=== PATIENT | female | born 1940 | race Caucasian/White ===

== ENCOUNTER 2022-02-15 06:09 | Inpatient (IN) | payer MEDICARE ==
[~2022-02-15] VITALS: Ht 175.3 cm; Wt 510.3 kg
[2022-02-15 06:59] LABS: BASOPHILS # (AUTO) 0.1 (0.0-0.1); BASOPHILS % 0.4 % (0.0-1.0); EOSINOPHILS # (AUTO) 0.3 (0.0-0.4); EOSINOPHILS % 1.9 % (0.0-6.0); HEMATOCRIT 45.7 % (34.2-44.1); HEMOGLOBIN 14.2 g/dL (12.0-16.0); LYMPHOCYTES # (AUTO) 1.5 (1.0-3.2); LYMPHOCYTES % 10.9 % (18.0-39.1); MEAN CORPUSCULAR HGB CONC 31.1 g/dL (31-35); MONOCYTES # (AUTO) 1.1 (0.2-0.8); MONOCYTES % 7.9 % (4.4-11.3); NEUTROPHILS # (AUTO) 10.5 (2.1-6.9); NEUTROPHILS % 78.6 % (38.7-80.0); PLATELET COUNT 309 x10e3/uL (140-360); RED BLOOD COUNT 5.08 x10e6/uL (3.6-5.1); RED CELL DISTRIBUTION WIDTH 13.3 % (11.7-14.4)
[2022-02-15 07:41] LABS: ALANINE AMINOTRANSFERASE 24 IU/L (0-55); ALBUMIN 3.3 g/dL (3.5-5.0); ALBUMIN/GLOBULIN RATIO 0.7 (0.8-2.0); ALKALINE PHOSPHATASE 143 IU/L (40-150); ANION GAP 14.7 mmol/L (8-16); BLOOD UREA NITROGEN 16 mg/dL (7-26); BUN/CREATININE RATIO 23 (6-25); CALCIUM 9.6 mg/dL (8.4-10.2); CARBON DIOXIDE 28 mmol/L (22-29); CHLORIDE 100 mmol/L (98-107); CREATINE KINASE 43 IU/L (29-168); CREATININE, SERUM 0.71 mg/dL (0.57-1.11); GLUCOSE 118 mg/dL (74-118); POTASSIUM 4.7 mmol/L (3.5-5.1); SODIUM 138 mmol/L (136-145)
[2022-02-15] MEDS: ASPIRIN 325 MG TAB PO ONE ×2 (08:02→08:25)
[2022-02-15] MEDS ORDERED: ATORVASTATIN CA20 MG PO (08:16)
[2022-02-15] MEDS ORDERED: ELIQUIS2.5 MG PO (08:17)
[2022-02-15] MEDS ORDERED: SOTALOL80 MG PO (08:17)
[2022-02-15] MEDS ORDERED: IOPAMIDOL 370 MG/ML 100 ML INFUS..BTL INJ ONE ×2 (08:24→22:15)
[2022-02-15] MEDS ORDERED: DIPHENHYDRAMINE HCL INJ 50 MG/ML VIAL IV ONE (08:30)
[2022-02-15 09:19] LABS: BACTERIA,URINE FEW /HPF; CLARITY,URINE CLEAR (CLEAR); COLOR,URINE YELLOW (YELLOW); EPITHELIAL CELLS,URINE FEW /LPF; KETONES,URINE NEGATIVE (NEGATIVE); LEUKOCYTE ESTERASE ,URINE NEGATIVE (NEGATIVE); NITRITE,URINE NEGATIVE (NEGATIVE); PROTEIN,URINE DIPSTICK NEGATIVE (NEGATIVE); RBC,URINE 0-5 /HPF (0-5); URINE UROBILINOGEN 0.2 mg/dL (0.2 - 1); WBC,URINE (MAN) 0-5 /HPF (0-5)
[2022-02-15] MEDS ORDERED: ONDANSETRON HCL INJ 2MG/ML 2ML 2 MG/ML VIAL IV PRN (10:45)
[2022-02-15 16:22] VITALS: BP 130/67
[2022-02-15] MEDS ORDERED: ENOXAPARIN 30 MG/0.3 ML SYR SC SCH (17:00)
[2022-02-15] MEDS ORDERED: ATORVASTATIN 20 MG TAB PO SCH ×2 (17:00→21:30)
[2022-02-15] MEDS: SOTALOL HCL 80 MG TAB PO SCH ×2 (19:16)
[2022-02-15] MEDS: APIXAB 2.5 MG TABLET PO SCH (19:16)
[2022-02-15 19:46] LABS: CREATINE KINASE 35 IU/L (29-168)
[2022-02-15 20:00] VITALS: BP 142/78
[2022-02-15 21:00] VITALS: BP 142/78
[2022-02-16] VITALS: BP 135/69
[2022-02-16 04:00] VITALS: BP 125/76
[2022-02-16 07:08] LABS: BASOPHILS # (AUTO) 0.1 (0.0-0.1); BASOPHILS % 0.5 % (0.0-1.0); EOSINOPHILS # (AUTO) 0.3 (0.0-0.4); EOSINOPHILS % 2.5 % (0.0-6.0); HEMATOCRIT 38.4 % (34.2-44.1); HEMOGLOBIN 12.1 g/dL (12.0-16.0); LYMPHOCYTES # (AUTO) 1.5 (1.0-3.2); MEAN CORPUSCULAR HEMOGLOBIN 28.1 pg (28-32); MEAN CORPUSCULAR HGB CONC 31.5 g/dL (31-35); MEAN CORPUSCULAR VOLUME 89.3 fL (81-99); MONOCYTES # (AUTO) 0.9 (0.2-0.8); MONOCYTES % 8.6 % (4.4-11.3); NEUTROPHILS # (AUTO) 7.9 (2.1-6.9); NEUTROPHILS % 73.9 % (38.7-80.0); PLATELET COUNT 235 x10e3/uL (140-360); RED CELL DISTRIBUTION WIDTH 13.3 % (11.7-14.4)
[2022-02-16 07:29] LABS: CREATINE KINASE 27 IU/L (29-168)
[2022-02-16 07:30] VITALS: BP 151/84
[2022-02-16] MEDS: FAMOTIDINE 20 MG TAB PO SCH ×2 (07:30→08:26)
[2022-02-16 07:39] LABS: ANION GAP 14.5 mmol/L (8-16); CALCIUM 8.6 mg/dL (8.4-10.2); CREATININE, SERUM 0.65 mg/dL (0.57-1.11); POTASSIUM 4.5 mmol/L (3.5-5.1)
[2022-02-16] MEDS: APIXAB 2.5 MG TABLET PO SCH (08:26)
[2022-02-16] MEDS: SOTALOL HCL 80 MG TAB PO SCH ×2 (08:28→09:00)
[2022-02-16] MEDS ORDERED: AUGMENTIN 500-1 EACH PO (10:23)
[2022-02-16 11:12] VITALS: BP 145/83
[2022-02-16 11:42] VITALS: BP 145/83
== END 2022-02-16 12:51 | disposition home or self-care (01) | DRG 179 ==
LOC: ER 06:13 → ERHOLD 10:45 → MED/SURG2 12:50
PROVIDERS: ADMIT Internal Medicine; ATTEND Internal Medicine
DX: A31.0 Pulmonary mycobacterial infection (principal); R09.1 Pleurisy; I10 Essential (primary) hypertension; E78.5 Hyperlipidemia, unspecified; I48.0 Paroxysmal atrial fibrillation; R91.8 Other nonspecific abnormal finding of lung field; E78.00 Pure hypercholesterolemia, unspecified; Z96.0 Presence of urogenital implants; Z79.01 Long term (current) use of anticoagulants; Z82.49 Family history of ischemic heart disease and other diseases of the circulatory system; Z86.16 Personal history of COVID-19
CPT/HCPCS: 36415; 71046; 71260; 80048; 80053; 81001; 82550; 82553; 83605; 84484; 85025; 87040; 93005; 94799; 99284; J0456; J0696; J1200; J1650; J7050; Q9967

== ENCOUNTER → 2022-04-01 | Outpatient (CLI) | payer MEDICARE ==
[~2022-04-01] MED LIST: ATORVASTATIN CA20 MG PO; AUGMENTIN 500-1 EACH PO; ELIQUIS2.5 MG PO; SOTALOL80 MG PO
== END ==
LOC: CT 14:09
PROVIDERS: ATTEND Internal Medicine Critical Care Medicine
DX: A31.9 Mycobacterial infection, unspecified (principal)
CPT/HCPCS: 71250

== ENCOUNTER 2023-01-22 08:36 | Inpatient (IN) | payer MEDICARE ==
[~2023-01-22] VITALS: Ht 175.3 cm; Wt 56.7 kg
[2023-01-22] MEDS ORDERED: SOTALOL HCL 80 MG TAB PO STA (09:16)
[2023-01-22 09:55] LABS: BASOPHILS % 0.2 % (0.0-1.0); EOSINOPHILS # (AUTO) 0.2 (0.0-0.4); HEMATOCRIT 49.6 % (34.2-44.1); HEMOGLOBIN 16.1 g/dL (12.0-16.0); LYMPHOCYTES # (AUTO) 1.9 (1.0-3.2); LYMPHOCYTES % 10.2 % (18.0-39.1); MEAN CORPUSCULAR HGB CONC 32.5 g/dL (31-35); MEAN CORPUSCULAR VOLUME 89.2 fL (81-99); MONOCYTES # (AUTO) 1.5 (0.2-0.8); MONOCYTES % 7.6 % (4.4-11.3); NEUTROPHILS # (AUTO) 15.4 (2.1-6.9); NEUTROPHILS % 80.5 % (38.7-80.0); PLATELET COUNT 229 x10e3/uL (140-360); RED BLOOD COUNT 5.56 x10e6/uL (3.6-5.1); RED CELL DISTRIBUTION WIDTH 13.3 % (11.7-14.4)
[2023-01-22 10:08] LABS: ALBUMIN 3.9 g/dL (3.5-5.0); ANION GAP 16.7 mmol/L (8-16); CALCIUM 9.7 mg/dL (8.4-10.2); CREATININE, SERUM 0.74 mg/dL (0.57-1.11); POTASSIUM 4.7 mmol/L (3.5-5.1)
[2023-01-22] MEDS ORDERED: DILTIAZEM HCL 5 MG/ML 5 ML VIAL IV STA (11:38)
[2023-01-22] MEDS ORDERED: LACTATED RINGER'S 1,000 ML INJ ONE (11:45)
[2023-01-22 12:28] LABS: CLARITY,URINE CLEAR (CLEAR); COLOR,URINE YELLOW (YELLOW); KETONES,URINE TRACE (NEGATIVE); LEUKOCYTE ESTERASE ,URINE NEGATIVE (NEGATIVE); NITRITE,URINE NEGATIVE (NEGATIVE); PROTEIN,URINE DIPSTICK 2+ (NEGATIVE); URINE UROBILINOGEN 0.2 mg/dL (0.2 - 1)
[2023-01-22 12:32] LABS: WBC,URINE (MAN) 21-50 /HPF (0-5)
[2023-01-22 12:33] LABS: BACTERIA,URINE FEW /HPF; EPITHELIAL CELLS,URINE FEW /LPF; RBC,URINE 0-5 /HPF (0-5); TRANSITIONAL EPI CELLS,URINE RARE
[2023-01-22 14:13] VITALS: PULSE 90; RESP 22; O2SAT 94
[2023-01-22] MEDS ORDERED: ONDANSETRON HCL INJ 2MG/ML 2ML 2 MG/ML VIAL IV PRN (16:30)
[2023-01-22] MEDS ORDERED: ACETAMINOPHEN 325 MG TAB PO PRN (16:30)
[2023-01-22] MEDS ORDERED: IOPAMIDOL 370 MG/ML 100 ML INFUS..BTL INJ ONE (16:43)
[2023-01-22] MEDS ORDERED: ZOLPIDEM TARTRATE 5 MG TAB PO PRN (16:45)
[2023-01-22 17:15] VITALS: BP 137/97; PULSE 90; RESP 22; TEMP 97.7; O2SAT 99
[2023-01-22 17:42] VITALS: BP 146/97; PULSE 75; RESP 21; TEMP 97.7; O2SAT 96
[2023-01-22] MEDS ORDERED: DILTIAZEM HCL 30 MG TAB PO PRN (18:00)
[2023-01-22] MEDS: SOTALOL HCL 80 MG TAB PO SCH (19:21)
[2023-01-22] MEDS: APIXAB 2.5 MG TABLET PO SCH (19:22)
[2023-01-22 19:26] VITALS: BP 146/97; PULSE 75; RESP 21; TEMP 97.7; O2SAT 96
[2023-01-22 19:49] VITALS: PULSE 92; RESP 18; O2SAT 95
[2023-01-22 21:29] VITALS: BP 162/95; PULSE 122; RESP 20; TEMP 98.4; O2SAT 96
[2023-01-22] MEDS: ATORVASTATIN 40 MG TAB PO SCH (21:42)
[2023-01-23] VITALS (10 sets, daily range): BP systolic 102–132; BP diastolic 60–95; PULSE 91–115; RESP 18–20; TEMP 98.3–98.7; O2SAT 89–97
[2023-01-23 05:43] LABS: HEMATOCRIT 42.7 % (34.2-44.1); HEMOGLOBIN 13.8 g/dL (12.0-16.0); MEAN CORPUSCULAR HGB CONC 32.3 g/dL (31-35); MEAN CORPUSCULAR VOLUME 89.7 fL (81-99); NEUTROPHILS % 76.1 % (38.7-80.0); PLATELET COUNT 195 x10e3/uL (140-360); RED BLOOD COUNT 4.76 x10e6/uL (3.6-5.1); RED CELL DISTRIBUTION WIDTH 13.2 % (11.7-14.4)
[2023-01-23 05:44] LABS: BASOPHILS % 0.3 % (0.0-1.0); EOSINOPHILS # (AUTO) 0.1 (0.0-0.4); EOSINOPHILS % 0.8 % (0.0-6.0); LYMPHOCYTES % 12.4 % (18.0-39.1); MONOCYTES # (AUTO) 1.6 (0.2-0.8)
[2023-01-23 06:11] LABS: ANION GAP 14.4 mmol/L (8-16); CALCIUM 8.9 mg/dL (8.4-10.2); CREATININE, SERUM 0.63 mg/dL (0.57-1.11); POTASSIUM 4.4 mmol/L (3.5-5.1)
[2023-01-23 07:18] LABS: FREE T4 (FREE THYROXINE) 1.17 ng/dL (0.8-1.8); THYROID STIMULATING HORMONE 1.372 uIU/mL (0.350-4.940)
[2023-01-23] MEDS: SENNOSIDES 8.6 MG TAB PO SCH (08:44)
[2023-01-23] MEDS: SOTALOL HCL 80 MG TAB PO SCH (08:44)
[2023-01-23] MEDS: APIXAB 2.5 MG TABLET PO SCH ×2 (08:44→17:04)
[2023-01-23] MEDS: DOCUSATE SODIUM 100 MG CAP PO SCH (08:45)
[2023-01-23] MEDS: ATORVASTATIN 40 MG TAB PO SCH (20:54)
[2023-01-24] VITALS (10 sets, daily range): BP systolic 103–135; BP diastolic 56–90; PULSE 51–112; RESP 16–21; TEMP 97.7–99; O2SAT 94–97
[2023-01-24 06:09] LABS: BASOPHILS # (AUTO) 0.1 (0.0-0.1); BASOPHILS % 0.3 % (0.0-1.0); EOSINOPHILS # (AUTO) 0.2 (0.0-0.4); EOSINOPHILS % 1.3 % (0.0-6.0); HEMATOCRIT 45.8 % (34.2-44.1); HEMOGLOBIN 14.8 g/dL (12.0-16.0); LYMPHOCYTES # (AUTO) 1.9 (1.0-3.2); LYMPHOCYTES % 10.5 % (18.0-39.1); MEAN CORPUSCULAR HEMOGLOBIN 28.6 pg (28-32); MEAN CORPUSCULAR HGB CONC 32.3 g/dL (31-35); MEAN CORPUSCULAR VOLUME 88.6 fL (81-99); MONOCYTES # (AUTO) 1.9 (0.2-0.8); MONOCYTES % 10.3 % (4.4-11.3); NEUTROPHILS % 77.2 % (38.7-80.0); PLATELET COUNT 245 x10e3/uL (140-360); RED BLOOD COUNT 5.17 x10e6/uL (3.6-5.1); RED CELL DISTRIBUTION WIDTH 13.2 % (11.7-14.4)
[2023-01-24 06:24] LABS: ANION GAP 13.6 mmol/L (8-16); CALCIUM 9.3 mg/dL (8.4-10.2); CREATININE, SERUM 0.65 mg/dL (0.57-1.11); POTASSIUM 4.6 mmol/L (3.5-5.1)
[2023-01-24] MEDS: SENNOSIDES 8.6 MG TAB PO SCH (08:15)
[2023-01-24] MEDS: SOTALOL HCL 80 MG TAB PO SCH (08:15)
[2023-01-24] MEDS: APIXAB 2.5 MG TABLET PO SCH ×2 (08:15→16:44)
[2023-01-24] MEDS: DOCUSATE SODIUM 100 MG CAP PO SCH (08:15)
[2023-01-24] MEDS ORDERED: FUROSEMIDE 20 MG TAB PO ONE (10:15)
[2023-01-24] MEDS: AMIODARONE HCL 200 MG TAB PO SCH ×2 (11:26→16:44)
[2023-01-24] MEDS: METOPROLOL TARTRATE 50 MG TAB PO SCH ×2 (13:36→21:14)
[2023-01-24] MEDS: ATORVASTATIN 40 MG TAB PO SCH (21:14)
[2023-01-25] VITALS (10 sets, daily range): BP systolic 125–139; BP diastolic 78–89; PULSE 85–111; RESP 16–20; TEMP 97.7–98.6; O2SAT 93–100
[2023-01-25] MEDS: METOPROLOL TARTRATE 50 MG TAB PO SCH ×3 (06:19→21:07)
[2023-01-25 06:36] LABS: BASOPHILS # (AUTO) 0.1 (0.0-0.1); BASOPHILS % 0.3 % (0.0-1.0); EOSINOPHILS # (AUTO) 0.2 (0.0-0.4); EOSINOPHILS % 1.2 % (0.0-6.0); HEMATOCRIT 43.9 % (34.2-44.1); HEMOGLOBIN 14.2 g/dL (12.0-16.0); LYMPHOCYTES # (AUTO) 1.5 (1.0-3.2); LYMPHOCYTES % 8.4 % (18.0-39.1); MEAN CORPUSCULAR HEMOGLOBIN 28.9 pg (28-32); MEAN CORPUSCULAR HGB CONC 32.3 g/dL (31-35); MEAN CORPUSCULAR VOLUME 89.2 fL (81-99); MONOCYTES # (AUTO) 1.7 (0.2-0.8); MONOCYTES % 9.6 % (4.4-11.3); NEUTROPHILS # (AUTO) 13.8 (2.1-6.9); NEUTROPHILS % 79.7 % (38.7-80.0); PLATELET COUNT 190 x10e3/uL (140-360); RED BLOOD COUNT 4.92 x10e6/uL (3.6-5.1); RED CELL DISTRIBUTION WIDTH 12.9 % (11.7-14.4)
[2023-01-25 07:16] LABS: ANION GAP 14.3 mmol/L (8-16); CALCIUM 9.2 mg/dL (8.4-10.2); CREATININE, SERUM 0.59 mg/dL (0.57-1.11); POTASSIUM 4.3 mmol/L (3.5-5.1)
[2023-01-25] MEDS: DOCUSATE SODIUM 100 MG CAP PO SCH (08:41)
[2023-01-25] MEDS: SENNOSIDES 8.6 MG TAB PO SCH (08:41)
[2023-01-25] MEDS: APIXAB 2.5 MG TABLET PO SCH ×2 (08:41→16:19)
[2023-01-25] MEDS: AMIODARONE HCL 200 MG TAB PO SCH ×3 (08:41→16:19)
[2023-01-25] MEDS ORDERED: POLYETHYLENE GLYCOL 3350 17 GM PACK PO ONE (13:00)
[2023-01-25] MEDS ORDERED: BISACODYL 10 MG SUPP PR ONE (13:00)
[2023-01-25] MEDS: ATORVASTATIN 40 MG TAB PO SCH (21:06)
[2023-01-26] VITALS (12 sets, daily range): BP systolic 125–147; BP diastolic 71–97; PULSE 53–102; RESP 16–21; TEMP 97.2–98.3; O2SAT 90–99
[2023-01-26 05:48] LABS: BASOPHILS % 0.2 % (0.0-1.0); EOSINOPHILS # (AUTO) 0.2 (0.0-0.4); EOSINOPHILS % 1.2 % (0.0-6.0); HEMATOCRIT 43.7 % (34.2-44.1); LYMPHOCYTES # (AUTO) 1.4 (1.0-3.2); LYMPHOCYTES % 8.3 % (18.0-39.1); MEAN CORPUSCULAR HEMOGLOBIN 28.6 pg (28-32); MEAN CORPUSCULAR VOLUME 89.4 fL (81-99); MONOCYTES # (AUTO) 1.3 (0.2-0.8); MONOCYTES % 7.5 % (4.4-11.3); NEUTROPHILS # (AUTO) 13.8 (2.1-6.9); NEUTROPHILS % 82.4 % (38.7-80.0); PLATELET COUNT 274 x10e3/uL (140-360); RED BLOOD COUNT 4.89 x10e6/uL (3.6-5.1); RED CELL DISTRIBUTION WIDTH 13.2 % (11.7-14.4)
[2023-01-26] MEDS: METOPROLOL TARTRATE 50 MG TAB PO SCH ×3 (05:53→21:03)
[2023-01-26 06:11] LABS: ALBUMIN 2.9 g/dL (3.5-5.0); ALBUMIN/GLOBULIN RATIO 0.8 (0.8-2.0); ANION GAP 12.4 mmol/L (8-16); CALCIUM 9.5 mg/dL (8.4-10.2); CREATININE, SERUM 0.72 mg/dL (0.57-1.11); POTASSIUM 4.4 mmol/L (3.5-5.1)
[2023-01-26] MEDS: POLYETHYLENE GLYCOL 3350 17 GM PACK PO SCH (08:41)
[2023-01-26] MEDS: DOCUSATE SODIUM 100 MG CAP PO SCH (08:41)
[2023-01-26] MEDS: SENNOSIDES 8.6 MG TAB PO SCH (08:41)
[2023-01-26] MEDS: APIXAB 2.5 MG TABLET PO SCH (08:41)
[2023-01-26] MEDS: AMIODARONE HCL 200 MG TAB PO SCH ×3 (08:42→16:49)
[2023-01-26] MEDS ORDERED: ONDANSETRON HCL 4 MG ORAL DISINTEGRATING TAB PO PRN (15:30)
[2023-01-26] MEDS: ATORVASTATIN 40 MG TAB PO SCH (21:08)
[2023-01-27] VITALS: BP 102/66; PULSE 79; RESP 16; TEMP 97.8; O2SAT 98
[2023-01-27 04:00] VITALS: BP 114/67; PULSE 77; RESP 16; TEMP 97.7; O2SAT 97
[2023-01-27] MEDS: METOPROLOL TARTRATE 50 MG TAB PO SCH (05:14)
[2023-01-27 06:13] VITALS: PULSE 99; RESP 16; O2SAT 97
[2023-01-27 07:45] VITALS: BP 143/97; PULSE 88; RESP 20; TEMP 97.9; O2SAT 97
[2023-01-27 08:05] VITALS: BP 143/97; PULSE 88; RESP 20; TEMP 97.9; O2SAT 97
[2023-01-27] MEDS: AMIODARONE HCL 200 MG TAB PO SCH (08:45)
[2023-01-27] MEDS: DOCUSATE SODIUM 100 MG CAP PO SCH (08:45)
[2023-01-27] MEDS: SENNOSIDES 8.6 MG TAB PO SCH (08:45)
[2023-01-27] MEDS: POLYETHYLENE GLYCOL 3350 17 GM PACK PO SCH (08:45)
[2023-01-27] MEDS ORDERED: APIXAB 2.5 MG TABLET PO SCH (09:00)
[2023-01-27] MEDS ORDERED: METOPROLOL SUCCINATE 50 MG TAB XL PO SCH ×2 (11:30)
[2023-01-27] MEDS ORDERED: TOPROL XL50 MG PO (11:56)
[2023-01-27] MEDS ORDERED: MIRALAX17 GM PO (11:56)
[2023-01-27] MEDS ORDERED: AMIODARONE HCL200 MG PO (11:56)
[2023-01-27] MEDS ORDERED: SENNA PLUS 8.61 EACH PO (11:56)
[2023-01-27] MEDS ORDERED: ELIQUIS2.5 MG PO (11:56)
[2023-01-27] MEDS ORDERED: ONDANSETRON ODT4 MG PO (11:56)
[2023-01-27] MEDS ORDERED: CEFDINIR300 MG PO (11:56)
[2023-01-27 12:08] VITALS: BP 127/90; PULSE 89; RESP 16; TEMP 98.2; O2SAT 98
[2023-01-27] MEDS ORDERED: TOPROL XL100 MG PO (16:36)
[2023-01-27] MEDS ORDERED: AMIODARONE HCL 200 MG TAB PO SCH (17:00)
== END 2023-01-27 14:07 | disposition home health service (06) | DRG 193 ==
LOC: ER 08:42 → ERHOLD 11:45 → MED/SURG3 16:58 → OBSVTOIN 01-23 19:10
PROVIDERS: ADMIT Internal Medicine; ATTEND Internal Medicine
DX: J18.9 Pneumonia, unspecified organism (principal); I50.33 Acute on chronic diastolic (congestive) heart failure; J96.01 Acute respiratory failure with hypoxia; Z16.11 Resistance to penicillins; N39.0 Urinary tract infection, site not specified; J47.1 Bronchiectasis with (acute) exacerbation; I48.0 Paroxysmal atrial fibrillation; B96.1 Klebsiella pneumoniae [K. pneumoniae] as the cause of diseases classified elsewhere; I11.0 Hypertensive heart disease with heart failure; I10 Essential (primary) hypertension; Z79.01 Long term (current) use of anticoagulants; Z99.81 Dependence on supplemental oxygen
CPT/HCPCS: 0223U; 36415; 71045; 71250; 80048; 80053; 81001; 83735; 83880; 84439; 84443; 84484; 85025; 87040; 87086; 87186; 93005; 93306; 94799; 99285; G0378; J0692; J2405; Q9967

== ENCOUNTER 2024-12-22 13:38 | Emergency (ER) | payer MEDICARE ==
[~2024-12-22] VITALS: Ht 175.3 cm; Wt 54.0 kg
[~2024-12-22 13:38] MED LIST changes: +AMIODARONE HCL200 MG PO; +CEFDINIR300 MG PO; +MIRALAX17 GM PO; +ONDANSETRON ODT4 MG PO; +SENNA PLUS 8.61 EACH PO; +TOPROL XL100 MG PO; +TOPROL XL50 MG PO
[2024-12-22 14:05] VITALS: TEMP 97.9
[2024-12-22] MEDS ORDERED: HYDRALAZINE HCL25 MG PO (14:11)
[2024-12-22 14:20] LABS: BASOPHILS # (AUTO) 0.1 (0.0-0.1); BASOPHILS % 0.7 % (0.0-1.0); EOSINOPHILS # (AUTO) 0.3 (0.0-0.4); EOSINOPHILS % 4.6 % (0.0-6.0); HEMATOCRIT 43.8 % (34.2-44.1); HEMOGLOBIN 14.7 g/dL (12.0-16.0); LYMPHOCYTES # (AUTO) 1.1 (1.0-3.2); MEAN CORPUSCULAR HEMOGLOBIN 29.8 pg (28-32); MEAN CORPUSCULAR HGB CONC 33.6 g/dL (31-35); MEAN CORPUSCULAR VOLUME 88.8 fL (81-99); MONOCYTES # (AUTO) 0.5 (0.2-0.8); NEUTROPHILS # (AUTO) 4.9 (2.1-6.9); NEUTROPHILS % 71.4 % (38.7-80.0); PLATELET COUNT 252 x10e3/uL (140-360); RED BLOOD COUNT 4.93 x10e6/uL (3.6-5.1); RED CELL DISTRIBUTION WIDTH 13.4 % (11.7-14.4); WHITE BLOOD COUNT 6.89 x10e3/uL (4.8-10.8)
[2024-12-22 14:39] LABS: BILIRUBIN,URINE SMALL (NEGATIVE); CLARITY,URINE CLOUDY (CLEAR); COLOR,URINE YELLOW (YELLOW); GLUCOSE, URINE NEGATIVE (NEGATIVE); KETONES,URINE TRACE (NEGATIVE); LEUKOCYTE ESTERASE ,URINE NEGATIVE (NEGATIVE); NITRITE,URINE NEGATIVE (NEGATIVE); PH,URINE 6 (5 - 7); PROTEIN,URINE DIPSTICK 2+ (NEGATIVE); URINE UROBILINOGEN 1 mg/dL (0.2 - 1)
[2024-12-22 14:41] LABS: ANION GAP 15.7 mmol/L (8-16); CALCIUM 9.5 mg/dL (8.4-10.2); CREATININE, SERUM 0.87 mg/dL (0.57-1.11); POTASSIUM 4.7 mmol/L (3.5-5.1)
[2024-12-22 15:14] LABS: BACTERIA,URINE MODERATE /HPF; EPITHELIAL CELLS,URINE FEW /LPF; WBC,URINE (MAN) 0-5 /HPF (0-5)
[2024-12-22] MEDS ORDERED: CEFDINIR300 MG PO (15:36)
[2024-12-22 16:00] VITALS: PULSE 77; RESP 18; O2SAT 100
== END 2024-12-22 16:03 | disposition home or self-care (01) ==
LOC: ER 14:17
DX: R26.81 Unsteadiness on feet (principal); N39.0 Urinary tract infection, site not specified; I10 Essential (primary) hypertension; I48.91 Unspecified atrial fibrillation; F41.9 Anxiety disorder, unspecified; R94.31 Abnormal electrocardiogram [ECG] [EKG]; Z82.49 Family history of ischemic heart disease and other diseases of the circulatory system
CPT/HCPCS: 36415; 70450; 80048; 81001; 84484; 85025; 87086; 93005; 99284